=== PATIENT | female | born 1990 | race Caucasian/White ===

== ENCOUNTER 2017-04-04 08:39 | Emergency (ER) | payer OTHER ==
[~2017-04-04] VITALS: Ht 160 cm; Wt 73.2 kg
[~2017-04-04 08:39] MED LIST: FRRS300 PO; IBUP600T44 PO; PRENTAB26 PO
[2017-04-04 08:40] VITALS: TEMP 37; Ht 160 cm; Wt 73.2 kg
[2017-04-04] MEDS ORDERED: CITA10TA8 PO (08:53)
[2017-04-04] MEDS ORDERED: PENI-82 PO (09:07)
[2017-04-04] MEDS ORDERED: OXYC1TAB3 PO (09:07)
[2017-04-04 09:14] VITALS: BP 116/72; PULSE 84; O2SAT 97
--- NOTE | 2017-04-04 16:50 | EMERGENCY ROOM VISIT NOTE ---
History First contact with patient: 08:51 Chief Complaint: DENTAL PAIN Stated Complaint: TOOTH PAIN Nursing Triage Summary: Patient c/o "really bad toothache". Bottom Right. History of Present Illness The patient is a 27 year old female who presents to the Emergency Room with complaints of right lower dental pain. The patient reports that she has had this discomfort for the past 2 days. She currently does not have a dentist. She did call her insurance carrier, and was told that there was not a participating dentist within 50 miles of her. She was instructed to come to the emergency department for evaluation. The patient has not noticed any significant facial swelling, difficulty swallowing, fever or chills. The patient reports that she has had fillings in the affected tooth. She rates her discomfort a 9 out of 10. Review of Systems 10 system review was performed and was negative except for pertinent positives and negatives as indicated in history of present illness Past Medical/Surgical History Medical Problems: (1) No significant past medical history Surgical Problems: (1) No history of previous surgery Family History FH: cancer FH: diabetes mellitus FH: hypertension Social History Smoking Status: Current Some Day Smoker Alcohol Use: occasionally Marital Status: single Housing Status: lives with family Occupation Status: employed Current/Historical Medications Scheduled Citalopram Hydrobromide (Celexa), 10 MG PO DAILY Penicillin V Potassium (Veetids), 500 MG PO QID Scheduled PRN Oxycodone Ir (Roxicodone Ir), 1 TAB PO Q4H PRN for Pain Physical Exam Vital Signs Date Time Temp Pulse Resp B/P (MAP) Pulse Ox O2 Delivery O2 Flow Rate FiO2 04/04/17 09:14 84 18 116/72 97 04/04/17 08:40 37.0 81 17 120/82 98 Room Air Pain Rating (0-10): 9.0 Physical Exam CONSTITUTIONAL: Healthy and well nourished. Alert and oriented X 3 with positive affect. HEENT: Normocephalic, atraumatic. Pupils equal, round and reactive. No facial edema noted. OROPHARYNX: The patient has tenderness to palpation and percussion of a right posterior mandibular molar. There is no gingival erythema, fluctuance or pointing. No evidence for Kolton's angina or pharyngeal abscess. LYMPHATICS: No submandibular, submental or cervical chain adenopathy. NECK: Full active range of motion without discomfort. INTEGUMENTARY: No rash or other significant dermatologic conditions noted. NEUROLOGIC: Facial sensations are intact. Medical Decision & Procedures ED Course Patient history and physical exam were performed. Nurse's notes were reviewed. Vital signs were reviewed and were normal. The patient was provided a prescription for Pen-Vee K 500 mg 4 times a day 10 days, and OxyIR 5 mg, dispensed #15 with no refills. She was also encouraged alternate ibuprofen and Tylenol for baseline pain relief. The patient was provided contact information for other dentists in the area that do accept most insurance coverage. The patient voiced understanding of all discharge instructions, was happy with plan of care, and rated her pain a 6 out of 10 at the conclusion of my exam. Medical Decision Medication Reconcilliation Current Medication List: was personally reviewed by me Blood Pressure Screening Patient's blood pressure: Normal blood pressure Impression Primary Impression: Pain, dental Departure Information Dispostion Home / Self-Care Prescriptions Oxycodone Ir (Roxicodone Ir) 5 Mg Tab 1 TAB PO Q4H Y for Pain, #15 TAB For Initial Treatment Prov: Parvez Higgins PA 04/04/17 Penicillin V Potassium (Veetids) 500 Mg Tab 500 MG PO QID, #40 TAB Prov: Parvez Higgins PA 04/04/17 Referrals Jonel Long ., Isaias Jama D.M.D, Philip A., D.O. (PCP) Ricardo Ramírez M.D. Forms HOME CARE DOCUMENTATION FORM, IMPORTANT VISIT INFORMATION Patient Instructions My [facility] Additional Instructions Finish all a Pen-Vee K ntibiotics as prescribed. Ibuprofen 800 mg and/or Tylenol 1000 mg every 8 hours. You may also alternate these medications for more effective pain relief: Ibuprofen --4 HRS--> Tylenol --4 HRS--> ibuprofen --4 HRS--> Tylenol .... CI are if needed for worse pain. Do not drink or drive while taking OxyIR. Soft foods. YOU MUST SEE A DENTIST FOR DEFINITIVE CARE. THE EMERGENCY DEPARTMENT DOES NOT PROVIDE DENTAL SERVICES, REFERRALS OR CHRONIC DENTAL PAIN MANAGEMENT. YOU MAY ALSO CALL YOUR FAMILY DOCTOR FOR PAIN MANAGEMENT UNTIL YOU SEE YOUR DENTIST. You may try calling the dentists provided. They may require a referral. Contact your insurance carrier for additional help in arranging these referrals.
== END 2017-04-04 09:15 | disposition home or self-care (01) ==
LOC: C.EDB 08:40
DX: K08.89 Other specified disorders of teeth and supporting structures (principal); F17.210 Nicotine dependence, cigarettes, uncomplicated; Z80.9 Family history of malignant neoplasm, unspecified; Z83.3 Family history of diabetes mellitus; Z82.49 Family history of ischemic heart disease and other diseases of the circulatory system

== ENCOUNTER → 2017-04-16 | Outpatient (CLI) | payer OTHER ==
[~2017-04-16] MED LIST changes: +CITA10TA8 PO; -FRRS300 PO; -IBUP600T44 PO; +OXYC1TAB3 PO; +PENI-82 PO; -PRENTAB26 PO
[2017-04-16 13:33] LABS: PREG INTERNAL NEGATIVE QC NEG CLEAR BACKGROUND; PREG INTERNAL POSITIVE QC POS CONTROL LINE
== END | disposition home or self-care (01) ==
LOC: C.LAB1850 12:20
PROVIDERS: ATTEND Obstetrics & Gynecology
DX: N91.2 Amenorrhea, unspecified (principal)

== ENCOUNTER → 2017-05-15 | Outpatient (CLI) | payer OTHER ==
[2017-05-15 13:23] LABS: PREG INTERNAL NEGATIVE QC NEG CLEAR BACKGROUND; PREG INTERNAL POSITIVE QC POS CONTROL LINE
== END | disposition home or self-care (01) ==
LOC: C.LAB1850 10:19
PROVIDERS: ATTEND Obstetrics & Gynecology
DX: N91.2 Amenorrhea, unspecified (principal)

== ENCOUNTER → 2017-05-31 | Outpatient (CLI) | payer OTHER ==
[2017-05-31 15:06] LABS: PREG INTERNAL NEGATIVE QC NEG CLEAR BACKGROUND; PREG INTERNAL POSITIVE QC POS CONTROL LINE
== END | disposition home or self-care (01) ==
LOC: C.LAB1850 12:59
PROVIDERS: ATTEND Obstetrics & Gynecology
DX: Z30.42 Encounter for surveillance of injectable contraceptive (principal)